=== PATIENT | female | born 1985 | race Caucasian/White ===

== ENCOUNTER 2022-11-17 22:12 | Emergency (ER) | payer OTHER ==
[~2022-11-17] VITALS: Ht 152.4 cm; Wt 94.8 kg
[2022-11-17 22:25] VITALS: BP 151/103; PULSE 91; RESP 16; TEMP 97.4; O2SAT 100
[2022-11-17] MEDS ORDERED: FLUORESCEIN OPTH STRIP 1 MG OP ONE (23:30)
[2022-11-18] MEDS ORDERED: PRED20TA5 PO (00:39)
[2022-11-18] MEDS ORDERED: IBUP-2218 PO (00:39)
[2022-11-18] MEDS ORDERED: ACYC-278 PO (00:39)
[2022-11-18 00:56] VITALS: BP 130/84; PULSE 91; RESP 16; TEMP 97.4; O2SAT 100
== END 2022-11-18 00:56 | disposition home or self-care (01) ==
LOC: MED 22:12
DX: B02.21 Postherpetic geniculate ganglionitis (principal); Z79.899 Other long term (current) drug therapy; Z79.1 Long term (current) use of non-steroidal anti-inflammatories (NSAID)
CPT/HCPCS: 99283